=== PATIENT | male | born 1945 | race Caucasian/White ===

== ENCOUNTER 2018-05-19 12:16 | Emergency (ER) | payer OTHER, MEDICAID ==
[~2018-05-19] VITALS: Ht 182.9 cm; Wt 63.5 kg
[~2018-05-19 12:16] MED LIST: ASPI-231 PO; CLOP75TA28 PO; DOCU-94 PO; DOCU100C8 PO; FUR20T PO; FURO80TA3 PO; GABA-339 PO; HYDR-4072 PO; POTA8TAB2 PO; PRO10I PO; [UNRECOGNIZED DRUG - CODE] PO
[2018-05-19 16:21] VITALS: BP 139/72
== END 2018-05-19 16:57 | disposition home or self-care (01) ==
LOC: ER 12:16
DX: S42.402A Unspecified fracture of lower end of left humerus, initial encounter for closed fracture (principal); S61.522A Laceration with foreign body of left wrist, initial encounter; S61.511A Laceration without foreign body of right wrist, initial encounter; S41.112A Laceration without foreign body of left upper arm, initial encounter; J44.9 Chronic obstructive pulmonary disease, unspecified; Z86.718 Personal history of other venous thrombosis and embolism; V49.59XA Passenger injured in collision with other motor vehicles in traffic accident, initial encounter; Y93.89 Activity, other specified; Y99.8 Other external cause status; Y92.89 Other specified places as the place of occurrence of the external cause
CPT/HCPCS: 29105; 70450; 72125; 73080; 73110

== ENCOUNTER 2021-11-11 09:43 | Emergency (ER) | payer OTHER, MEDICAID ==
[~2021-11-11] VITALS: Ht 172.7 cm; Wt 68.0 kg
[~2021-11-11 09:43] MED LIST changes: -ASPI-231 PO; +ASPI1TAB20 PO; +DOCU100C10 PO; -DOCU100C8 PO; +POTA10IN6 PO; -[UNRECOGNIZED DRUG - CODE] PO
[2021-11-11 09:47] VITALS: BP 163/90
== END 2021-11-11 10:56 | disposition home or self-care (01) ==
LOC: EDBD 09:43 → EDUNIT# 09:43 → ER 09:43
DX: L03.031 Cellulitis of right toe (principal); M79.651 Pain in right thigh; M54.31 Sciatica, right side; I10 Essential (primary) hypertension; J44.9 Chronic obstructive pulmonary disease, unspecified; Z87.891 Personal history of nicotine dependence; Z79.01 Long term (current) use of anticoagulants; Z79.82 Long term (current) use of aspirin; Z79.899 Other long term (current) drug therapy
CPT/HCPCS: 93971